=== PATIENT | female | born 1990 | race Caucasian/White ===

== ENCOUNTER 2019-10-23 00:21 | Inpatient (IN) | payer BC ==
--- NOTE | 2019-10-22 21:23 | PDOC.LDHP ---
Labor and Delivery H&P Chief complaint: scheduled induction HPI: 29 y/o at 39 and 2/7 weeks presents for elective term induction of labor. GBS neg. Current gestational age (weeks): 39 Due date: 10/27/19 Grav: 3 Para: 2 Current complications: none Abnormal US findings: No Current medications: pre- vitamins Previous surgical history: none Social history: none - Physical Exam Vital signs reviewed and normal: yes General: NAD, resting Heart: RRR Lungs: CTAB Abdomen: gravid Extremeties: no edema FHT: category 1 - Assessment L&D Assessment: elective induction at term - Plan Plan: admit to L&D, cervical ripening
[~2019-10-23 00:21] MED LIST: Acetaminophen 500 MG TAB PO PRN; Butorphanol Tartrate 1 MG/ML VIAL SLOW IVP PRN; Carboprost 250 MCG/ML AMP IM PRN; Diphenoxylate HCl/Atropine Tablet PO PRN; Docusate 100 MG CAP PO PRN; HYDROcodone/Acetaminophen 5/325 mg Tablet PO PRN; Ibuprofen 800 MG TAB PO PRN; Lidocaine 1% (PF) 30 ML VIAL SC PRN; Methylergonovine 0.2 MG/ML VIAL IM PRN; Misoprostol 200 MCG TAB PR PRN; NS / Oxytocin 40 units/1000ml 1,000 ML IV PRN; NS w/ Oxytocin 10 units 500 ML IV SCH; Ondansetron PF 4 MG/2 ML Vial IVP PRN; Promethazine HCl 25 MG/ML VIAL IM PRN; Zolpidem Tartrate 5 MG TAB PO PRN; hydrALAZINE 20 MG/ML VIAL SLOW IVP PRN
[2019-10-23] MEDS: Lactated Ringer's 1,000 ML IV SCH ×3 (01:45→12:19)
[2019-10-23 02:20] LABS: Mean Corpuscular HGB CONC 35.1 g/dL (32.0-36.0); Mean Corpuscular Hemoglobin 30.8 pg (27.0-31.0); Mean Corpuscular Volume 87.7 fL (78.0-98.0); Mean Platelet Volume 9.3 fL (7.4-10.4); Platelet Count 183 thou/uL (130-400); RBC Distribution Width 11.5 % (11.5-14.5); Red Blood Cell (RBC) Count 3.56 mill/uL (4.20-5.40); White Blood Cell (WBC) Count 5.6 thou/uL (4.8-10.8)
[2019-10-23 02:26] VITALS: BMI 29.4
[2019-10-23 02:38] LABS: HBSAg Index 0.18 S/CO (0-0.99); Hep B Surf Ag Non-Reactive S/CO (NonReactive)
[2019-10-23] MEDS ORDERED: Misoprostol 100 MCG TAB VAG SCH (03:00)
[2019-10-23 05:07] LABS: Syphilis Antibody Nonreactive (Nonreactive); Syphilis Antibody Index 0.04 S/CO (<1.00 Non-Reactive)
[2019-10-23] MEDS ORDERED: Bupivacaine/Epinephrine 0.25% 30 ML VIAL ONE (09:11)
[2019-10-23] MEDS ORDERED: Fentanyl 4 mcg/Bup 0.1% Cadd 100 ML ONE (14:18)
[2019-10-23] MEDS ORDERED: diphenhydrAMINE 50 MG/ML VIAL IVP PRN (14:59)
[2019-10-23] MEDS ORDERED: Ondansetron PF 4 MG/2 ML Vial IVP PRN ×2 (14:59→18:40)
[2019-10-23] MEDS ORDERED: Promethazine HCl 25 MG/ML VIAL IM PRN ×2 (14:59→18:40)
[2019-10-23] MEDS ORDERED: Acetaminophen 325 MG TAB PO PRN (14:59)
[2019-10-23] MEDS ORDERED: Lactated Ringer's 500 ML IV PRN (14:59)
[2019-10-23] MEDS ORDERED: EPHEDRINE 25 MG/5 ML SYRINGE SLOW IVP PRN (14:59)
[2019-10-23] MEDS ORDERED: Naloxone HCl 0.4 mg/ml Vial IVP PRN ×2 (14:59)
[2019-10-23] MEDS ORDERED: Fentanyl 4 mcg/Bupivacaine 0.1% Cassette 100 ML EPIDURAL SCH (15:00)
[2019-10-23] MEDS ORDERED: Communication Order-Pharmacy FS SCH (15:00)
[2019-10-23] MEDS ORDERED: Zolpidem Tartrate 5 MG TAB PO PRN (18:40)
[2019-10-23] MEDS ORDERED: Adacel (T-DAP) 0.5 ML SYRINGE IM ONE (18:40)
[2019-10-23] MEDS ORDERED: NS / Oxytocin 40 units/1000ml 1,000 ML IV SCH (18:40)
[2019-10-23] MEDS ORDERED: Preparation H Ointment 28 GM TUBE PR PRN (18:40)
[2019-10-23] MEDS ORDERED: Milk Of Magnesia 30 ML UDCUP PO PRN (18:40)
[2019-10-23] MEDS ORDERED: Misoprostol 200 MCG TAB VAG PRN (18:40)
[2019-10-23] MEDS ORDERED: Bisacodyl 10 MG SUPP PR PRN (18:40)
[2019-10-23] MEDS ORDERED: HYDROcodone/Acetaminophen 5/325 mg Tablet PO PRN ×2 (18:40)
[2019-10-23] MEDS ORDERED: Varicella virus, LIVE 0.5 ML VIAL SC ONE (18:40)
[2019-10-23] MEDS ORDERED: hydrALAZINE 20 MG/ML VIAL SLOW IVP PRN (18:40)
[2019-10-23] MEDS ORDERED: Lanolin Ointment 7 GM TUBE TOP PRN (18:40)
[2019-10-23] MEDS ORDERED: Measles/Mumps/Rubella 10 MCG/0.5 ML VIAL SC ONE (18:40)
[2019-10-23] MEDS ORDERED: Benzocaine-Menthol 82.5 ML CAN TOP PRN (18:40)
[2019-10-23] MEDS ORDERED: Methylergonovine 0.2 MG/ML VIAL IM PRN (18:40)
[2019-10-23] MEDS ORDERED: diphenhydrAMINE 25 MG CAP PO PRN (18:40)
[2019-10-23] MEDS: Docusate Calcium (SURFAK) 240 MG CAP PO SCH (22:03)
[2019-10-23] MEDS: Ibuprofen 800 MG TAB PO SCH (22:04)
[2019-10-24] MEDS: Ibuprofen 800 MG TAB PO SCH ×2 (05:23→14:49)
[2019-10-24 05:50] LABS: Hemoglobin 11.2 g/dL (12.0-16.0); Mean Corpuscular HGB CONC 34.4 g/dL (32.0-36.0); Mean Corpuscular Hemoglobin 30.5 pg (27.0-31.0); Mean Corpuscular Volume 88.6 fL (78.0-98.0); Mean Platelet Volume 9.3 fL (7.4-10.4); Platelet Count 156 thou/uL (130-400); RBC Distribution Width 11.6 % (11.5-14.5); Red Blood Cell (RBC) Count 3.66 mill/uL (4.20-5.40); White Blood Cell (WBC) Count 9.1 thou/uL (4.8-10.8)
[2019-10-24] MEDS: Ferrous Sulfate 325 MG TAB PO SCH ×2 (08:23→15:15)
[2019-10-24] MEDS: Docusate Calcium (SURFAK) 240 MG CAP PO SCH (08:24)
[2019-10-24] MEDS ORDERED: Prenatal Vitamin 1 TAB PO SCH (09:00)
[2019-10-24 11:39] VITALS: BP 99/55; TEMP 99
--- NOTE | 2019-10-24 15:31 | PDOC.PP ---
Post Progress Note Post Day #: 1 PO intake tolerated: yes Flatus: yes Ambulation: yes Vital Signs (12 hours) Temp Pulse Resp BP Pulse Ox 10/24/19 11:38 99.0 F 74 20 99/55 L 10/24/19 08:00 97.9 F 63 20 101/67 97 10/24/19 03:40 97.8 F 59 L 12 121/61 98 Weight Weight 161 lb - Physical Examination Cardiovascular: no m/r/g, RRR Respiratory: clear to auscultation bilaterally, non-labored breathing Abdominal: + bowel sounds, lochia, no distention, appropriately TTP Extremities: negative homans (B) Skin: CS incision dry & intact, no rash (DC to hoped planned) Neurological: no gross focal deficits Psychiatric: A&Ox3, normal affect Result Diagrams: 10/24/19 05:36 Additional Labs: Post Labs Blood Type O POSITIVE 10/23/19 05:22 Hep Bs Antigen Non-Reactive S/CO (NonReactive) 10/23/19 01:47
--- NOTE | 2019-10-24 16:39 | DN ---
DATE OF PROCEDURE: 10/23/2019 TIME OF SERVICE: 1745 hours central daylight savings time. PREOPERATIVE DIAGNOSIS: Intrauterine at 39 weeks and 3 days with a term induction of labor. POSTOPERATIVE DIAGNOSIS: Intrauterine at 39 weeks and 3 days with a term induction of labor. PROCEDURE PERFORMED: Spontaneous vaginal delivery over a second-degree laceration of the perineum. FINDINGS: Viable male infant, weighing 3385 g or 7 pounds 7 ounces. Apgars 9 and 9. QUANTITATIVE BLOOD LOSS: 50. COMPLICATIONS: None. PROCEDURE IN DETAIL: The patient presented to [facility] where she was admitted to the labor and delivery service. The patient underwent a normal and uneventful labor with normal cervical dilatation until she was found to be completely dilated. She was then allowed to push and was able to bring the baby down and delivered the baby in a vertex presentation without difficulties. Once the head delivered in occiput anterior position, the shoulders followed spontaneously along with the rest of the baby's body. Once out the baby's mouth and nose were bulb suctioned. The cord was clamped and cut and baby was handed to waiting attendants. Cord blood was collected. Gentle fundal massage was performed and the placenta delivered intact without problems. Hemostasis was assured. Quantitative blood loss was calculated. Inspection of the cervix, vaginal vault, and perineum did not reveal any lacerations needing suturing. Once again, hemostasis was within normal limits and the patient was allowed to recover in the labor and delivery room. Baby went to nursery. Job ID: [id number]
== END 2019-10-24 19:10 | disposition home or self-care (01) | DRG 807 ==
LOC: L&D 00:21 → 3SE 21:03 → EDSTATUS 10-27 15:53
PROVIDERS: ADMIT Obstetrics & Gynecology; ATTEND Obstetrics & Gynecology
PROC: 10E0XZZ Delivery of Products of Conception, External Approach (ICD-10-PCS; principal; 2019-10-23)
PROC: 3E0P7VZ Introduction of Hormone into Female Reproductive, Via Natural or Artificial Opening (ICD-10-PCS; 2019-10-23)
PROC: 3E033VJ Introduction of Other Hormone into Peripheral Vein, Percutaneous Approach (ICD-10-PCS; 2019-10-23)
DX: O70.1 Second degree perineal laceration during delivery (principal); Z37.0 Single live birth; Z3A.39 39 weeks gestation of pregnancy
CPT/HCPCS: 36415; 51702; 85027; 86780; 86850; 86900; 86901; 87340; 90715; J2405; J2590